=== PATIENT | male | born 1985 | race African-American/Black ===

== ENCOUNTER 2016-12-24 15:09 | Emergency (ER) | payer OTHER ==
[~2016-12-24 15:09] MED LIST: CEPH500C3 PO; LORT5TAB PO; Z.0.NO CURRENT MEDS
[2016-12-24 15:11] VITALS: BP 167/98; PULSE 72; RESP 15; TEMP 98.2; O2SAT 99
--- NOTE | 2016-12-24 15:21 | PD ---
Physical Exam Date Seen by Provider: Dec 24, 2016 Time Seen by Provider: 15:19 Narrative Pt states he slammed his right thumb in a car door Saturday. Pt states the pain is an 8/10 and describes it as pressure-like. VSS, awaiting bed placement. Data Data Last Documented VS Vital Signs Date Time Temp Pulse Resp B/P (MAP) Pulse Ox O2 Delivery O2 Flow Rate FiO2 12/24/16 15:11 98.2 72 15 167/98 (121) 99 MDM Supervised Visit with JUSTINE: Mabel Tay Dec 24, 2016 15:20
--- NOTE | 2016-12-24 16:04 | PD ---
HPI Chief Complaint: Injury Time Seen by Provider: 16:04 Travel History International Travel<30 days: No Contact w/Intl Traveler<30days: No Traveled to known affect area: No History of Present Illness HPI 31-year-old male presents emergency Department with complaint of right thumb pain after slamming a door 2 days ago. Denies paresthesias, loss of sensation to the affected finger. Reports decreased range of motion at the DIP joint of the thumb. Denies fever, vomiting. Describes pain as a pressure in his thumb. Has a hematoma developed underneath the fingernail. Has been taking ibuprofen for symptom management. Symptoms are moderate in severity. No known allergies. Has no other medical complaints. No other modifying factors or associated signs and symptoms. PFSH Past Medical History Diminished Hearing: No Social History Alcohol Use: Yes ("OCCASIONALLY") Tobacco Use: Yes (2 BLACK AND MILD CIGARS DAILY) Substance Use: No Allergies-Medications (Allergen,Severity, Reaction): Coded Allergies: No Known Allergies (Verified , 07/02/11) Reported Meds & Prescriptions Reported Meds & Active Scripts Active No Active Prescriptions or Reported Medications Review of Systems Except as stated in HPI: all other systems reviewed are Neg Physical Exam Narrative GENERAL: Well-nourished, well-developed male patient, in no acute distress SKIN: Warm and dry. HEAD: Atraumatic. Normocephalic. EYES: Pupils equal and round. No scleral icterus. No injection or drainage. ENT: Mucosa pink and moist. Airway patent. NECK: Trachea midline. CARDIOVASCULAR: Regular rate. RESPIRATORY: No accessory muscle use. GASTROINTESTINAL: Flat. MUSCULOSKELETAL: Right thumb is mildly edematous and without erythema or ecchymosis; no obvious deformities, tenderness on palpation; hematoma developed under the bottom half of the nailbed; decreased range of motion at the thumb joint; sensory intact; 3 second cap refill. No obvious deformities. No clubbing. No cyanosis. NEUROLOGICAL: Awake and alert. Oriented 3. No obvious cranial nerve deficits. Motor grossly within normal limits. Normal speech. PSYCHIATRIC: Appropriate mood and affect; insight and judgment normal. Data Data Last Documented VS Vital Signs Date Time Temp Pulse Resp B/P (MAP) Pulse Ox O2 Delivery O2 Flow Rate FiO2 12/24/16 15:11 98.2 72 15 167/98 (121) 99 Orders Orders Finger ([id number]) (12/24/16 ) Ketorolac Inj (Toradol Inj) (12/24/16 16:15) Splint Or Brace Apply/Monitor (12/24/16 16:13) MDM Medical Decision Making Medical Screen Exam Complete: Yes Emergency Medical Condition: Yes Medical Record Reviewed: Yes Differential Diagnosis Subungual hematoma, crush injury, fracture, contusion Narrative Course 31-year-old male with a subungual hematoma to the right thumb after coming in a car door 2 days ago. Toradol administered in the ER. See my procedure note for release of subungual hematoma. Right thumb x-ray ordered. 1617: Right thumb x-ray with no acute findings. Suggested follow-up in 7-10 days if symptoms persist. [place] splint provided for support. Ibuprofen prescribed for home. Instructed patient to follow up with primary care provider. Patient verbalizes understanding and agreement with treatment plan. Patient is medically cleared and stable for discharge. Discussed reasons to return to the emergency department. Patient agrees with treatment plan. The patients vital signs are stable and the patient is stable for outpatient follow- up and treatment. Patient discharged home, stable and in no acute distress. Procedures Procedure Narrative Release of subungual hematoma: A high temp cautery loop tip was used to make 2 puncture holes into the nailbed. Subungual hematoma drained. Patient tolerated well. Diagnosis Primary Impression: Thumb injury Qualified Codes: S69.91XA - Unspecified injury of right wrist, hand and finger (s), initial encounter Additional Impression: Subungual hematoma of fingernail Qualified Codes: S60.10XA - Contusion of unspecified finger with damage to nail, initial encounter Referrals: Primary Care Physician Patient Instructions: Finger Sprain (ED), General Instructions, Subungual Hematoma (ED) Additional Instructions: Finger splint as needed for support Ibuprofen or Tylenol as instructed that he needed for pain and inflammation Ice to affected finger as needed for pain and inflammation Follow-up with primary care provider Return to the emergency department immediately with worsening of symptoms Med/Other Pt SpecificInfo: Prescription(s) given Scripts Ibuprofen (Ibuprofen) 800 Mg Tab 800 MG PO Q6HR Y for PAIN, #30 TAB 0 Refills Prov: Minoo Wild 12/24/16 Disposition: 01 DISCHARGE HOME Condition: Stable Minoo Wild Dec 24, 2016 16:04
--- NOTE | 2016-12-24 16:08 | RADRPT ---
EXAM DATE/TIME: 12/24/2016 16:04 [facility] COMPARISON: No previous studies available for comparison. INDICATIONS : Pain post slamming finger in car door. MEDICAL HISTORY : None. SURGICAL HISTORY : None. ENCOUNTER: Initial ACUITY: 2 days PAIN SCORE: 8/10 LOCATION: Right Hand. FINDINGS: Examination of the first digit of the right hand demonstrates no evidence of fracture or dislocation. No radiopaque foreign bodies are seen. The soft tissues are intact. CONCLUSION: Negative for fracture or dislocation. Follow up in 7-10 days is suggested if symptoms persist. Jed Mackenzie MD FACR on December 24, 2016 at 16:05 Board Certified Radiologist. This report was verified electronically.
[2016-12-24] MEDS ORDERED: KETOROLAC TROMETHAMINE 60 MG/2 ML (IM) VIAL IM ONE (16:15)
[2016-12-24] MEDS ORDERED: IBUP800T23 PO (16:18)
== END 2016-12-24 16:30 | disposition home or self-care (01) ==
LOC: NEPK 15:09
DX: S60.111A Contusion of right thumb with damage to nail, initial encounter (principal); W23.0XXA Caught, crushed, jammed, or pinched between moving objects, initial encounter
CPT/HCPCS: 11740; 73140; 96372

== ENCOUNTER 2017-01-09 16:11 | Emergency (ER) | payer SELFPAY ==
[~2017-01-09] VITALS: Ht 180.3 cm; Wt 70.0 kg
[~2017-01-09 16:11] MED LIST changes: -CEPH500C3 PO; +IBUP800T23 PO; -LORT5TAB PO; -Z.0.NO CURRENT MEDS
[2017-01-09 16:13] VITALS: BP 160/90; PULSE 108; RESP 20; TEMP 98.2; O2SAT 97
[2017-01-09] MEDS ORDERED: BACT800T5 PO (16:52)
--- NOTE | 2017-01-09 16:52 | PD ---
HPI . left leg wound x 3 days Chief Complaint: Skin Problem Time Seen by Provider: 16:44 Travel History International Travel<30 days: No Contact w/Intl Traveler<30days: No Traveled to known affect area: No History of Present Illness HPI 31 yr old male here with c/o possible insect bite to his left posterior leg about 3 days ago. He tells me that it initially started off as small red bump, however he has been scratching at it and now it's a little bit worse. He admits to pain in the area. He denies any fever or chills. He has no other complaints. He denies any IV drug use. PFSH Past Medical History Diminished Hearing: No Social History Alcohol Use: Yes ("OCCASIONALLY") Tobacco Use: Yes (2 BLACK AND MILD CIGARS DAILY) Substance Use: No Allergies-Medications (Allergen,Severity, Reaction): Coded Allergies: No Known Allergies (Verified , 01/09/17) Reported Meds & Prescriptions Reported Meds & Active Scripts Active No Active Prescriptions or Reported Medications Review of Systems General / Constitutional: No: Fever Eyes: No: Visual changes HENT: No: Headaches Cardiovascular: No: Chest Pain or Discomfort Respiratory: No: Shortness of Breath Gastrointestinal: No: Abdominal Pain Genitourinary: No: Dysuria Musculoskeletal: No: Pain Skin: Positive Other (left leg infection ), No Rash Neurologic: No: Weakness Psychiatric: No: Depression Endocrine: No: Polydipsia Hematologic/Lymphatic: No: Easy Bruising Physical Exam Narrative GENERAL: AAO x 3, no acute distress, Well-nourished, well-developed patient. SKIN: Warm and dry. Left posterior leg medial aspect proximal to popliteal fossa, 3 cm area of erythema and some weeping, with surrounding zone of inflammation extending about 4 cm. HEAD: Normocephalic and atraumatic. EYES: No scleral icterus. No injection or drainage. ENT: No nasal drainage noted. Mucous membranes pink. Airway patent. NECK: Supple, trachea midline. No JVD. CARDIOVASCULAR: Regular rate and rhythm without murmurs, gallops, or rubs. RESPIRATORY: Breath sounds equal bilaterally. No accessory muscle use. No rhonchi or rales. GASTROINTESTINAL: visual inspection normal EXTREMITIES: No cyanosis or edema. BACK: No obvious deformity. NEURO: CN II-12 intact, PSYCH: AAO x 3, normal affect. Data Data Last Documented VS Vital Signs Date Time Temp Pulse Resp B/P (MAP) Pulse Ox O2 Delivery O2 Flow Rate FiO2 01/09/17 16:13 98.2 108 20 160/90 (113) 97 Room Air MDM Medical Decision Making Medical Screen Exam Complete: Yes Emergency Medical Condition: Yes Medical Record Reviewed: Yes Differential Diagnosis cellulitis, less likely shingles, less likely sepsis Narrative Course 31 yr old male here with c/o left leg infection for about 3 days. He thinks he was bitten by an insect. He denies any fever or chills. He denies any tick exposure. He does have a cellulitis to his left posterior leg. Area cleaned and dressed. Antibiotics upon discharge. Recheck in 48 hours. Advised to return for worsening infection. Diagnosis Primary Impression: Left leg cellulitis Patient Instructions: General Instructions Additional Instructions: Please return to emergency department if your symptoms return or worsen. Follow up with your primary care provider. Take medications as prescribed. Change dressings daily. You may bathe normally. Do not submerge the wound. Take the antibiotics as they are prescribed, even if your symptoms resolve during the course of treatment. Utilize [id number] pain medications, as described on the label, as needed. Return to the ED in 48 hours for wound recheck. Follow-up with your primary care provider in next week. Return to the ED for any urgent or emergent medical condition. [place] for worsening signs of infection which include fever, increased redness , increased warmth, purulent drainage, increased swelling or streaking. If any of these develop, please go to the nearest emergency room. Med/Other Pt SpecificInfo: Prescription(s) given Scripts Sulfamethoxazole-Trimethoprim (Bactrim DS) 800-160 Mg Tab 1 TAB PO BID for Infection, #14 TAB 0 Refills Prov: Berenice Villareal 01/09/17 Disposition: 01 DISCHARGE HOME Condition: Stable Berenice Villareal Jan 09, 2017 16:52
== END 2017-01-09 16:59 | disposition home or self-care (01) ==
LOC: EDTENT 16:11
DX: L03.116 Cellulitis of left lower limb (principal)
CPT/HCPCS: 99283

== ENCOUNTER 2017-01-11 15:02 | Emergency (ER) | payer SELFPAY ==
[~2017-01-11] VITALS: Ht 180.3 cm; Wt 70.0 kg
[~2017-01-11 15:02] MED LIST changes: +BACT800T5 PO; -IBUP800T23 PO
[2017-01-11 15:03] VITALS: BP 143/83; PULSE 85; RESP 20; TEMP 97.9; O2SAT 97
--- NOTE | 2017-01-11 15:34 | PD ---
HPI . Wound recheck Chief Complaint: Skin Problem Time Seen by Provider: 15:33 Travel History International Travel<30 days: No Contact w/Intl Traveler<30days: No Traveled to known affect area: No History of Present Illness HPI 31-year-old male here for recheck of his left leg sialitis. I actually saw this patient a few days ago for a left leg cellulitis. Patient tells me that he thinks the areas getting better, however he noticed some redness surrounding the wound. He denies any fever or chills. He admits to taking his antibiotics as prescribed. PFSH Past Medical History Diminished Hearing: No Social History Alcohol Use: Yes ("OCCASIONALLY") Tobacco Use: Yes (2 BLACK AND MILD CIGARS DAILY) Substance Use: No Allergies-Medications (Allergen,Severity, Reaction): Coded Allergies: No Known Allergies (Verified , 01/11/17) Reported Meds & Prescriptions Reported Meds & Active Scripts Active Bactrim DS (Sulfamethoxazole-Trimethoprim) 800-160 Mg Tab 1 Tab PO BID Review of Systems General / Constitutional: No: Fever Eyes: No: Visual changes HENT: No: Headaches Cardiovascular: No: Chest Pain or Discomfort Respiratory: No: Shortness of Breath Gastrointestinal: No: Abdominal Pain Genitourinary: No: Dysuria Musculoskeletal: No: Pain Skin: Positive Other (left leg cellulitis ), No Rash Neurologic: No: Weakness Psychiatric: No: Depression Endocrine: No: Polydipsia Hematologic/Lymphatic: No: Easy Bruising Physical Exam Narrative GENERAL: AAO x 3, no acute distress, Well-nourished, well-developed patient. SKIN: Warm and dry. No visible rashes or bruising. left posterior leg cellulitis above popliteal fossa improving, less drainage and erythema, there is some surrounding erythema what appears to be early blister formation following the tape distribution HEAD: Normocephalic and atraumatic. EYES: No scleral icterus. No injection or drainage. ENT: No nasal drainage noted. Mucous membranes pink. Airway patent. NECK: Supple, trachea midline. No JVD. CARDIOVASCULAR: Regular rate and rhythm without murmurs, gallops, or rubs. RESPIRATORY: Breath sounds equal bilaterally. No accessory muscle use. No rhonchi or rales. GASTROINTESTINAL: visual inspection normal EXTREMITIES: No cyanosis or edema. BACK: No obvious deformity. NEURO: CN II-12 intact, PSYCH: AAO x 3, normal affect. Data Data Last Documented VS Vital Signs Date Time Temp Pulse Resp B/P (MAP) Pulse Ox O2 Delivery O2 Flow Rate FiO2 01/11/17 15:54 01/11/17 15:03 97.9 85 20 97 [facility] Medical Decision Making Medical Screen Exam Complete: Yes Emergency Medical Condition: Yes Medical Record Reviewed: Yes Differential Diagnosis cellulitis, less likely sepsis, localized allergic reaction to tape Narrative Course 31-year-old male here for recheck of his left leg cellulitis. This area appears to be improving. I recommend he return in 2 days for recheck of this area. There is some surrounding erythema which I think is from localized reaction to the tape he may be using at home. I recommend he use paper tape to see if this helps reduce inflammation. Continue antibiotics. I recommend return to the emergency department earlier for any change in his symptoms. Patient verbalized understanding of instructions, questions were answered, and thanked me for their care. I advised them if their condition worsens, please return to the nearest emergency room for further care. Diagnosis Primary Impression: Left leg cellulitis Patient Instructions: General Instructions Additional Instructions: Keep area clean and dry. Wash daily with soap and water. Stop using the tape that you are using as it seems you may be allergic to it. Return in 48 hours for another recheck. [place] for worsening signs of infection which include fever, increased redness , increased warmth, purulent drainage, increased swelling or streaking. If any of these develop, please go to the nearest emergency room. Med/Other Pt SpecificInfo: No Change to Meds Disposition: 01 DISCHARGE HOME Condition: Stable Berenice Villareal Jan 11, 2017 15:34
== END 2017-01-11 16:01 | disposition home or self-care (01) ==
LOC: NEPK 15:02
DX: L03.116 Cellulitis of left lower limb (principal)
CPT/HCPCS: 99281

== ENCOUNTER 2017-09-08 08:29 | Emergency (ER) | payer SELFPAY ==
[~2017-09-08] VITALS: Ht 180.3 cm; Wt 68.0 kg
[2017-09-08 08:31] VITALS: BP 153/79; PULSE 66; RESP 18; TEMP 97.8; O2SAT 99
--- NOTE | 2017-09-08 08:41 | PD ---
HPI Chief Complaint: ENT Complaint Time Seen by Provider: 08:36 Travel History International Travel<30 days: No Contact w/Intl Traveler<30days: No Traveled to known affect area: No History of Present Illness HPI 32-year-old male presents emergency department with itching and draining from the right ear for approximately 2 days. Patient has history of eczema. He denies significant pain. No recent fever, chills, or other complaints. He has no known drug allergies. PFSH Past Medical History Diminished Hearing: No Social History Alcohol Use: Yes ("OCCASIONALLY") Tobacco Use: Yes (2 BLACK AND MILD CIGARS DAILY) Substance Use: No Allergies-Medications (Allergen,Severity, Reaction): Coded Allergies: No Known Allergies (Verified , 01/11/17) Reported Meds & Prescriptions Reported Meds & Active Scripts Active Bactrim DS (Sulfamethoxazole-Trimethoprim) 800-160 Mg Tab 1 Tab PO BID Review of Systems Except as stated in HPI: all other systems reviewed are Neg General / Constitutional: No: Fever Eyes: No: Visual changes HENT: No: Headaches Cardiovascular: No: Chest Pain or Discomfort Respiratory: No: Shortness of Breath Gastrointestinal: No: Abdominal Pain Genitourinary: No: Dysuria Musculoskeletal: No: Pain Skin: No Rash Neurologic: No: Weakness Psychiatric: No: Depression Endocrine: No: Polydipsia Hematologic/Lymphatic: No: Easy Bruising Physical Exam Narrative GENERAL: Patient is in no acute distress per SKIN: Warm and dry. Normal color. Normal turgor. The skin around the right auricle is somewhat erythematous and crusty consistent with eczema. There is obvious drainage from the right ear. HEAD: Atraumatic. Normocephalic. EYES: Pupils equal and round. No scleral icterus. No injection or drainage. ENT: No nasal bleeding or discharge. Mucous membranes pink and moist. TMs appear to be intact bilaterally. Patient has mild swelling and erythema to the right ear canal. There is obvious purulent drainage at this time. Pharynx is clear. Airways patent. No sinus tenderness. NECK: Trachea midline. Supple and nontender. CARDIOVASCULAR: Regular rate and rhythm. RESPIRATORY: No accessory muscle use. Clear to auscultation. Breath sounds equal bilaterally. MUSCULOSKELETAL: Extremities without clubbing, cyanosis, or edema. No obvious deformities. NEUROLOGICAL: Awake and alert. No obvious cranial nerve deficits. Motor grossly within normal limits. Five out of 5 muscle strength in the arms and legs. Normal speech. PSYCHIATRIC: Appropriate mood and affect; insight and judgment normal. Data Data Last Documented VS Vital Signs Date Time Temp Pulse Resp B/P (MAP) Pulse Ox O2 Delivery O2 Flow Rate FiO2 09/08/17 08:31 97.8 66 18 153/79 (103) 99 MDM Medical Decision Making Medical Screen Exam Complete: Yes Emergency Medical Condition: Yes Differential Diagnosis Right otitis externa. Eczema. Cellulitis. Narrative Course Patient will be treated with Cortisporin optic drops to the right ear 4 times daily for the next 10 days. Patient is to keep the area clean and dry and follow-up with symptoms do not improve. Diagnosis Primary Impression: Diffuse otitis externa, right ear Qualified Codes: H60.311 - Diffuse otitis externa, right ear Patient Instructions: General Instructions, Otitis Externa (ED) Additional Instructions: Patient will be treated with Cortisporin optic drops to the right ear 4 times daily for the next 10 days. Patient is to keep the area clean and dry and follow-up with symptoms do not improve. Med/Other Pt SpecificInfo: Prescription(s) given Disposition: 01 DISCHARGE HOME Condition: Stable Bernabe Garcia September 08, 2017 08:41
[2017-09-08] MEDS ORDERED: NEOM1SOL7 RIGHT EAR (08:43)
== END 2017-09-08 19:01 | disposition home or self-care (01) ==
LOC: NEPD 08:29
DX: H60.311 Diffuse otitis externa, right ear (principal); L30.9 Dermatitis, unspecified; F17.290 Nicotine dependence, other tobacco product, uncomplicated
CPT/HCPCS: 99283